=== PATIENT | female | born 1990 | race Caucasian/White ===

== ENCOUNTER 2021-03-21 16:54 | Emergency (ER) | payer OTHER, SELFPAY ==
--- NOTE | ~2021-03-21 | XR_ITS ---
EXAMINATION: XR finger 2nd LT min 2V EXAM DATE: 03/21/2021 17:42 INDICATION: Laceration towards the anterior distal second digit. TECHNIQUE: Left 2nd finger frontal, lateral and oblique projections obtained and reviewed. There i s no prior study for comparison. FINDINGS: There are no acute left 2nd finger fractures or dislocations identified. There is no subcu taneous gas. There may be a laceration along the volar aspect of the distal phalanx. There are no r adiopaque foreign bodies. IMPRESSION: No acute osseous findings. Reviewed, dictated and finalized at location A. [facility] IMPRESSION: No acute osseous findings.
[2021-03-21 17:13] VITALS: BP 169/75; PULSE 80; RESP 18; TEMP 36.6; O2SAT 99
--- NOTE | 2021-03-21 17:17 | ED.WOUNDLAC ---
HPI - Wound/Laceration General Chief Complaint: Wound/Laceration Stated Complaint: cut finger Time Seen by Provider: 03/21/21 17:17 Source: patient Mode of arrival: ambulatory Limitations: no limitations History of Present Illness HPI narrative: Previously well 30-year-old woman comes in today complaining of laceration of her left index finger that happened approximately 20 minutes prior to arrival. She was moving a closed door into her basement when it slipped and the sheet metal cut her finger. She does not recall her last tetanus shot. Onset (ago): minute(s) (20) Extremity Location: Left: hand Place: home Patient tetanus UTD: No (unknown) Context: accidental Associated symptoms: pain Treatments prior to arrival: bandage Related Data Allergies Allergy/AdvReac Type Severity Reaction Status Date / Time morphine Allergy Cramping Verified 03/21/21 17:24 of the [facility] [place] Review of Systems: All systems reviewed & are unremarkable except as noted in HPI and below Gastrointestinal: Gastrointestinal: Denies nausea and Denies vomiting Musculoskeletal: Musculoskeletal: Denies arthralgias and Denies joint swelling Integumentary/Breasts: Skin/Breast: Denies pruritus, Denies erythema and Denies rash Hematologic/Lymphatic: Hematologic/Lymphatic: Denies easy bleeding and Denies easy bruising Allergic/Immunologic: Allergic/Immunologic: Denies lip swelling and Denies throat swelling PMFSH Surgical History Surgical History (Updated 03/21/21 @ 17:24 by Jesus Ca MD) History of tubal ligation Social History Social History (Updated 03/21/21 @ 17:24 by Jesus Ca MD) Smoking status: Never smoker Substance use: never Living arrangements: with family Occupation/Education: occupation Additional occupation/education comments: [employer] Exam Const: General: healthy appearing and alert Orientation/consciousness: patient oriented x3 Limitations: no limitations Other: [id number] acute distress. Resp: Effort & Inspection: normal respiratory effort and not labored Auscultation: clear to auscultation bilaterally, no rales, no rhonchi and no wheezes Cardio: Rate: regular rate Rhythm: regular rhythm Heart sounds: no murmurs Skin: General skin exam: normal color, no jaundice and no pallor Rashes: no rashes Other: Avulsion/flap laceration on the pad of the left index finger. Nail bed is intact. Neuro: General: patient oriented x3, moves all extremities, no focal motor deficits and CN's II-XI intact bilaterally Speech: normal speech Gait exam (Neuro): Normal gait present Extrem: General: normal to inspection and no clubbing, cyanosis or edema Psych: Appearance: grossly normal and well kempt Mental Status: mental status grossly normal Affect: normal affect Attitude: cooperative Thought content: Yes Normal thought content present Course Vital Signs Vital signs: Vital Signs Temperature 36.6 C 03/21/21 17:13 Pulse Rate 80 03/21/21 17:13 Respiratory Rate 18 03/21/21 17:13 Blood Pressure 169/75 H 03/21/21 17:13 Pulse Oximetry 99 03/21/21 17:13 Temperature 36.6 C 03/21/21 17:13 Pulse Rate 88 03/21/21 17:58 Respiratory Rate 18 03/21/21 17:58 Blood Pressure 140/89 03/21/21 17:58 Pulse Oximetry 99 03/21/21 17:13 Procedures Laceration Laceration 1: Date: 03/21/21 Time: 18:40 Site: hand Side (If applicable): left Size (cm): 1.5 Description: flap, irregular and clean Depth: simple, single layer Local Anesthetic: lidocaine 1% Amount of anesthesia used (mL): 3 Pre-repair: wound explored, irrigated extensively and wound margins revised ====== Skin Level ====== Skin layer closed with: nylon Size (cm): 5-0 (9) Technique: simple, interrupted ====== Subcutaneous Layer ====== ====== Muscle Layer ====== ====== Tendon Layer ======
[2021-03-21] MEDS: TETANUS,DIPHTHERIA,AC PERTUSSIS ADULT 0.5 ML (ADACEL) IM (17:32)
[2021-03-21 17:58] VITALS: BP 140/89; PULSE 88; RESP 18
[2021-03-21] MEDS: LIDOCAINE HCL 1% LOCAL INJ 20 ML VIAL 10 ML INFILTRATE (18:12)
[2021-03-21] MEDS: NEOMYCIN/POLYMYXIN/BACITRACIN OINTMENT PACKET 1 PACKET TOPICAL (19:18)
[2021-03-21] MEDS: ACETAMINOPHEN/CODEINE (*CRX) 300/30 MG TABLET 1 TAB PO (19:19)
[2021-03-21 19:30] VITALS: BP 130/88; PULSE 78; RESP 18; TEMP 36.6; O2SAT 98
== END 2021-03-21 19:31 | disposition home or self-care (01) ==
PROVIDERS: Emergency Provider Emergency Medicine; PCP Family Medicine
DX: S61.211A Laceration without foreign body of left index finger without damage to nail, initial encounter (principal); W45.8XXA Other foreign body or object entering through skin, initial encounter
CPT/HCPCS: 12001; 73140; 90471; 90715; 99283; A9270